=== PATIENT | female | born 1995 | race American Indian/Alaskan Native ===

== ENCOUNTER 2019-12-13 11:45 | Outpatient (CLI) | payer OTHER | END 2019-12-14 10:26 | disposition home or self-care (01) | LOC: OBS/DEL 11:45 | PROVIDERS: ATTEND Obstetrics & Gynecology | DX: O60.03 Preterm labor without delivery, third trimester (principal); O26.843 Uterine size-date discrepancy, third trimester; O26.893 Other specified pregnancy related conditions, third trimester; N20.0 Calculus of kidney ==

== ENCOUNTER 2020-02-18 07:46 | Inpatient (IN) | payer OTHER ==
[~2020-02-18] VITALS: Ht 157.5 cm; Wt 81.6 kg
[2020-02-18] MEDS ORDERED: PRENATAL CAPLE1 EAC1 PO (08:11)
== END 2020-02-21 19:49 | DRG 807 ==
LOC: OBS/DEL 07:46 → LDR 23:51 → OB/GYN 02-19 13:24
PROVIDERS: ADMIT Obstetrics & Gynecology; ATTEND Obstetrics & Gynecology
PROC: 4A0HXFZ Measurement of Products of Conception, Cardiac Rhythm, External Approach (ICD-10-PCS; 2020-02-18)
PROC: 10E0XZZ Delivery of Products of Conception, External Approach (ICD-10-PCS; principal; 2020-02-19)
DX: O80 Encounter for full-term uncomplicated delivery (principal); Z37.0 Single live birth; Z3A.38 38 weeks gestation of pregnancy; Z20.828 Contact with and (suspected) exposure to other viral communicable diseases